=== PATIENT | male | born 1995 | race African-American/Black ===

== ENCOUNTER 2016-07-03 00:26 | Emergency (ER) | payer SELFPAY ==
[2016-07-03] MEDS ORDERED: SODIUM CHLORIDE 0.9% 1,000 ML ONE (02:04)
[2016-07-03] MEDS ORDERED: KETOROLAC 60 MG/2 ML VIAL IM ONE (02:17)
== END 2016-07-03 04:26 | disposition home or self-care (01) ==
LOC: ER 00:26
DX: R07.9 Chest pain, unspecified (principal); R09.1 Pleurisy
CPT/HCPCS: 36415; 71020; 80053; 80307; 82553; 84484; 85025; 93005; 96372